=== PATIENT | male | born 1950 | race Caucasian/White ===

== ENCOUNTER 2018-01-16 12:04 | Inpatient (IN) | payer MEDICARE ==
[~2018-01-16] VITALS: Ht 182.9 cm; Wt 104.6 kg
[2018-01-16] MEDS ORDERED: SODIUM CHLORIDE FLUSH 10ML SYR IVF ONE (13:00)
[2018-01-16] MEDS ORDERED: MORPHINE SULFATE 4 MG/ML, 1ML IVPush PRN (13:00)
[2018-01-16] MEDS ORDERED: ONDANSETRON 2MG/ML, 2ML IVPush ONE (13:00)
[2018-01-16 13:03] LABS: BASOPHILS # (AUTO) 0.06 x10^3/uL (0-0.1); BASOPHILS % (AUTO) 1 % (0-1); EOSINOPHILS # (AUTO) 0.28 x10^3/uL (0-0.4); EOSINOPHILS % (AUTO) 5 % (1-7); LYMPHOCYTES # (AUTO) 1.68 x10^3/uL (1-3.4); LYMPHOCYTES % (AUTO) 27 % (22-44); MD NO; MEAN CORPUSCULAR HEMOGLOBIN 31.8 pg (27.5-34.5); MEAN CORPUSCULAR HGB CONC 34.3 g/dL (33.2-36.2); MEAN CORPUSCULAR VOLUME 92.7 fL (81-97); MEAN PLATELET VOLUME 8.7 fL (7.4-10.4); MONOCYTES # (AUTO) 0.62 x10^3/uL (0.2-0.8); MONOCYTES % (AUTO) 10 % (2-9); NEUTROPHILS # (AUTO) 3.56 x10^3/uL (1.8-6.8); NEUTROPHILS % (AUTO) 58 % (42-75); PLATELET COUNT 202 x10^3/uL (130-400); RED BLOOD COUNT 4.58 x10^6/uL (4.38-5.82); RED CELL DISTRIBUTION WIDTH 13.4 % (9.4-14.8)
[2018-01-16] MEDS ORDERED: ATOR-2 PO (13:05)
[2018-01-16] MEDS ORDERED: ASPI-621 PO (13:05)
[2018-01-16 13:12] LABS: ALBUMIN 3.9 g/dL (3.4-5.0); ANION GAP 9 mmol/L (5-15); CALCIUM 8.8 mg/dL (8.5-10.1); CHLORIDE 107 mmol/L (98-107)
[2018-01-16 13:13] LABS: CREATININE 0.63 mg/dL (0.7-1.3)
[2018-01-16 13:17] LABS: TROPONIN I < 0.015 ng/mL (0.000-0.045)
[2018-01-16] MEDS ORDERED: MORPHINE SULFATE 4 MG/ML, 1ML ONE (13:20)
[2018-01-16] MEDS ORDERED: ONDANSETRON 2MG/ML, 2ML ONE (13:20)
[2018-01-16 15:29] VITALS: BP_SYST 132; BP_SYST 137; BP_SYST 148; BP_DIAS 83
[2018-01-16] MEDS ORDERED: DOCUSATE 100 MG CAPSULE PO PRN (15:30)
[2018-01-16] MEDS ORDERED: BISACODYL 10 MG SUPP PR PRN (15:30)
[2018-01-16] MEDS ORDERED: hydrALAzine 20 MG/ML, 1ML IVPush PRN (15:30)
[2018-01-16] MEDS ORDERED: LABETALOL 5MG/ML, 20ML IVPush PRN (15:30)
[2018-01-16] MEDS ORDERED: POLYETHYLENE GLYCOL 17 GM PACKET PO PRN (15:30)
[2018-01-16 15:31] LABS: INTERNATIONAL NORMALIZED RATIO 1.01 (0.93-1.1); PROTHROMBIN TIME 10.5 Seconds (9.6-11.5)
[2018-01-16 15:56] LABS: FREE T4 (FREE THYROXINE) 1.19 ng/dL (0.76-1.46); THYROID STIMULATING HORMONE 2.13 mIU/L (0.358-3.740)
[2018-01-16 16:16] LABS: AMPHETAMINE SCREEN, URINE Negative (Negative); BARBITURATE SCREEN, URINE Negative (Negative); BENZODIAZEPINE SCREEN, URINE Negative (Negative); CANNABINOID SCREEN, URINE Negative (Negative); COCAINE SCREEN, URINE Negative (Negative); METHADONE SCREEN, URINE Negative (Negative); OPIATE SCREEN, URINE Positive (Negative)
[2018-01-16] MEDS ORDERED: GABAPENTIN 100 MG CAPSULE PO PRN (16:30)
[2018-01-16] MEDS: HEPARIN 5,000 UNITS/ML, 1ML SQ SCH (16:55)
[2018-01-16] MEDS: ATORVASTATIN 80 MG TABLET PO SCH (17:32)
[2018-01-16] MEDS: ACETAMINOPHEN 325 MG TABLET PO PRN (18:31)
[2018-01-16 19:34] VITALS: BP 121/78
[2018-01-17 00:35] VITALS: BP 107/70
[2018-01-17] MEDS: HEPARIN 5,000 UNITS/ML, 1ML SQ SCH ×3 (01:06→16:29)
[2018-01-17] MEDS: ACETAMINOPHEN 325 MG TABLET PO PRN (01:12)
[2018-01-17 04:54] LABS: ALBUMIN 3.4 g/dL (3.4-5.0); ANION GAP 8 mmol/L (5-15); CALCIUM 9.5 mg/dL (8.5-10.1); CHLORIDE 109 mmol/L (98-107)
[2018-01-17 05:13] LABS: ALANINE AMINOTRANSFERASE 54 U/L (12-78); ALKALINE PHOSPHATASE 58 U/L (45-117); BILIRUBIN,TOTAL 0.3 mg/dL (0.2-1.0); CREATININE 0.73 mg/dL (0.7-1.3); TOTAL PROTEIN 6.5 g/dL (6.4-8.2)
[2018-01-17 06:29] LABS: CHOL/HDL RATIO 3.8; LDL/HDL RATIO 0.7 (0.5-3.0)
[2018-01-17 07:14] VITALS: BP 130/79
[2018-01-17] MEDS: ASPIRIN 81 MG TABLET EC PO SCH (07:53)
[2018-01-17 12:52] VITALS: BP 133/87
[2018-01-17] MEDS ORDERED: BISACODYL 5 MG EC TABLET PO PRN (14:00)
[2018-01-17] MEDS: SODIUM CHLORIDE 0.9% 1,000 ML IV SCH (16:28)
[2018-01-17] MEDS ORDERED: OXYcodone IR 5MG TABLET PO ONE (17:00)
[2018-01-17 19:53] VITALS: BP 121/73
[2018-01-17] MEDS: ATORVASTATIN 80 MG TABLET PO SCH (21:07)
[2018-01-18 01:00] VITALS: BP 124/79
[2018-01-18] MEDS: SODIUM CHLORIDE 0.9% 1,000 ML IV SCH ×3 (01:02→16:24)
[2018-01-18] MEDS: HEPARIN 5,000 UNITS/ML, 1ML SQ SCH ×3 (01:03→16:25)
[2018-01-18 06:02] LABS: ALBUMIN 3.5 g/dL (3.4-5.0); ANION GAP 7 mmol/L (5-15); CALCIUM 8.7 mg/dL (8.5-10.1); CHLORIDE 110 mmol/L (98-107)
[2018-01-18 06:03] LABS: CREATININE 0.65 mg/dL (0.7-1.3)
[2018-01-18 08:00] VITALS: BP 130/83
[2018-01-18] MEDS: ASPIRIN 81 MG TABLET EC PO SCH (08:32)
[2018-01-18 10:30] VITALS: BP 118/80
[2018-01-18 10:31] VITALS: BP 134/83
[2018-01-18 10:32] VITALS: BP 137/84
[2018-01-18] MEDS ORDERED: MECLIZINE 12.5 MG TABLET PO PRN (11:00)
[2018-01-18 14:00] VITALS: BP 135/87
== END 2018-01-18 16:35 | disposition home or self-care (01) | DRG 74 ==
LOC: ED 13:55 → EDIP 14:03 → 5SO 15:16 → DCLOUNGE 01-18 16:15
PROVIDERS: ADMIT Internal Medicine; ATTEND Internal Medicine
DX: G90.8 Other disorders of autonomic nervous system (principal); R42 Dizziness and giddiness; I25.10 Atherosclerotic heart disease of native coronary artery without angina pectoris; G56.00 Carpal tunnel syndrome, unspecified upper limb; I48.91 Unspecified atrial fibrillation; E78.5 Hyperlipidemia, unspecified; Z96.659 Presence of unspecified artificial knee joint; M48.02 Spinal stenosis, cervical region; E83.39 Other disorders of phosphorus metabolism; G47.33 Obstructive sleep apnea (adult) (pediatric); I10 Essential (primary) hypertension; Z80.41 Family history of malignant neoplasm of ovary; Z83.2 Family history of diseases of the blood and blood-forming organs and certain disorders involving the immune mechanism; Z87.891 Personal history of nicotine dependence; Z91.14 Patient's other noncompliance with medication regimen; Z95.1 Presence of aortocoronary bypass graft
CPT/HCPCS: 36415; 70450; 70553; 71045; 72141; 80048; 80053; 80061; 80307; 82040; 82306; 82550; 83735; 83970; 84100; 84439; 84443; 84484; 84550; 85025; 85610; 90656; 93005; 93306; 93880; 96372; 96374; 96375; 99285; G0378; J1644; J2405; J7030

== ENCOUNTER 2018-12-27 12:30 | Emergency (ER) | payer MEDICARE ==
[~2018-12-27] VITALS: Ht 182.9 cm; Wt 93.0 kg
[~2018-12-27 12:30] MED LIST: ASPI81TA45 PO; ATOR-2 PO
[2018-12-27 13:20] VITALS: BP 142/87
== END 2018-12-27 15:35 ==
LOC: ED 15:16
DX: M51.34 Other intervertebral disc degeneration, thoracic region (principal); M51.36 Other intervertebral disc degeneration, lumbar region; I10 Essential (primary) hypertension; I48.91 Unspecified atrial fibrillation; F17.200 Nicotine dependence, unspecified, uncomplicated; Z95.1 Presence of aortocoronary bypass graft; Z96.651 Presence of right artificial knee joint
CPT/HCPCS: 72072; 72110; 99283

== ENCOUNTER 2019-03-20 08:21 | Outpatient (CLI) | payer MEDICARE ==
[2019-03-20 08:47] LABS: ALBUMIN 3.7 g/dL (3.4-5.0); CALCIUM 8.4 mg/dL (8.5-10.1); CHLORIDE 108 mmol/L (98-107)
[2019-03-20 08:52] LABS: ALANINE AMINOTRANSFERASE 59 U/L (12-78); ALKALINE PHOSPHATASE 73 U/L (45-117); ANION GAP 4 mmol/L (5-15); BILIRUBIN,TOTAL 0.4 mg/dL (0.2-1.0); CHOL/HDL RATIO 3.4; CHOLESTEROL, TOTAL 126 mg/dL (140-239); CREATININE 0.84 mg/dL (0.7-1.3); HDL CHOL % 29 % (26-37); HDL CHOLESTEROL (DIRECT) 37 mg/dL (40-60); LDL CHOLESTEROL,CALCULATED 63 mg/dL (54-169); LDL/HDL RATIO 1.7 (0.5-3.0); TOTAL PROTEIN 7.5 g/dL (6.4-8.2); TRIGLYCERIDES 129 mg/dL (50-200); VLDL CHOLESTEROL 26 mg/dL (0-25)
== END 2019-03-20 23:59 | disposition home or self-care (01) ==
LOC: LAB 08:21
PROVIDERS: ATTEND Family Medicine
DX: I10 Essential (primary) hypertension (principal)
CPT/HCPCS: 36415; 80053; 80061; 82043

== ENCOUNTER 2019-05-26 05:53 | Emergency (ER) | payer MEDICARE ==
[~2019-05-26] VITALS: Ht 182.9 cm; Wt 97.8 kg
[2019-05-26] MEDS ORDERED: METO25TA35 PO (06:13)
[2019-05-26] MEDS ORDERED: OXYC10TA6 PO (06:13)
--- NOTE | 2019-05-26 06:13 | NUR ---
PT C/O SHARP CHEST PAIN 4/10, ALSO REPORTS LEFT SHOULDER PAIN HAD RECENT REPAIR.
[2019-05-26 06:52] VITALS: BP 119/68
[2019-05-26 07:22] LABS: BASOPHILS # (AUTO) 0.06 x10^3/uL (0-0.1); BASOPHILS % (AUTO) 1 % (0-1); EOSINOPHILS # (AUTO) 0.27 x10^3/uL (0-0.4); EOSINOPHILS % (AUTO) 4 % (1-7); LYMPHOCYTES # (AUTO) 1.93 x10^3/uL (1-3.4); LYMPHOCYTES % (AUTO) 32 % (22-44); MD NO; MEAN CORPUSCULAR HGB CONC 33.9 g/dL (33.2-36.2); MEAN CORPUSCULAR VOLUME 91.4 fL (81-97); MEAN PLATELET VOLUME 8.5 fL (7.4-10.4); MONOCYTES % (AUTO) 10 % (2-9); NEUTROPHILS # (AUTO) 3.22 x10^3/uL (1.8-6.8); NEUTROPHILS % (AUTO) 53 % (42-75); PLATELET COUNT 181 x10^3/uL (130-400); RED CELL DISTRIBUTION WIDTH 13.4 % (9.4-14.8)
[2019-05-26 07:33] LABS: ALANINE AMINOTRANSFERASE 38 U/L (12-78); ALBUMIN 3.5 g/dL (3.4-5.0); ANION GAP 6 mmol/L (5-15); CALCIUM 8.9 mg/dL (8.5-10.1); CHLORIDE 108 mmol/L (98-107); CREATININE 0.71 mg/dL (0.7-1.3)
[2019-05-26 07:37] LABS: ALKALINE PHOSPHATASE 61 U/L (45-117); BILIRUBIN,TOTAL 0.5 mg/dL (0.2-1.0); TROPONIN I < 0.015 ng/mL (0.000-0.045)
--- NOTE | 2019-05-26 07:46 | NUR ---
all results back at this time. chart up for recheck.
== END 2019-05-26 08:06 | disposition home or self-care (01) ==
LOC: ED 05:59
DX: R07.89 Other chest pain (principal); R05 Cough; Z95.1 Presence of aortocoronary bypass graft
CPT/HCPCS: 36415; 71045; 80053; 83690; 84484; 85025; 93005; 99285

== ENCOUNTER 2020-05-28 15:22 | Emergency (ER) | payer MEDICARE ==
[~2020-05-28] VITALS: Ht 182.9 cm; Wt 96.6 kg
[~2020-05-28 15:22] MED LIST changes: +METO25TA35 PO; +OXYC10TA6 PO
--- NOTE | 2020-05-28 16:08 | NUR ---
PT TO ROOM W/ C/O WEAKNESS/DIZZINESS/CONGESTION STARTED . PT STATES HE WAS TESTED AND GIVEN RESULTS ON MONDAY CONFIRMING PT WAS COVID +. PT STATES HE THEN HAD ABD PAIN AND WENT TO [facility] AND WAS GIVEN THE RAPID COVID AND WAS FOUND TO BE POSITIVE. PT THEN HAD SURGERY FOR UMBILICAL HERNIA 05/25/[address] FUNES AND WAS SENT HOME. PT STATES HE HAS NOT FELT ANY BETTER AND CAME TO ED. PT NOTED TO HAVE HEAT, REDNESS, SWELLING TO SURGICAL SITE AND AROUND IT. ORIGINAL SURGICAL BANDAGE STILL IN PLACE. PT RESTING ON GURNEY. +COUGHING EXCESSIVELY IN ROOM. O2 SATS REMAIN IN THE HIGH 90'S RA. PT SPEAKING IN FULL SENTENCES.
--- NOTE | 2020-05-28 17:29 | NUR ---
PT RESTING ON GURNEY. NADN. LINO.
[2020-05-28] MEDS ORDERED: CEFTRIAXONE PMX 1GM/50ML 50 ML ONE (17:45)
[2020-05-28 17:50] LABS: BASOPHILS % (AUTO) 1 % (0-1); EOSINOPHILS % (AUTO) 0 % (1-7); LYMPHOCYTES % (AUTO) 25 % (22-44); MEAN CORPUSCULAR HEMOGLOBIN 31.9 pg (27.5-34.5); MEAN CORPUSCULAR HGB CONC 33.8 g/dL (33.2-36.2); MEAN PLATELET VOLUME 8.8 fL (7.4-10.4); MONOCYTES % (AUTO) 13 % (2-9); NEUTROPHILS % (AUTO) 61 % (42-75); PLATELET COUNT 119 x10^3/uL (130-400); RED BLOOD COUNT 4.43 x10^6/uL (4.38-5.82); RED CELL DISTRIBUTION WIDTH 13.3 % (9.4-14.8)
[2020-05-28 17:51] LABS: MD NO
--- NOTE | 2020-05-28 17:53 | NUR ---
ABX STARTED AFTER BC X 2 DRAWN.
[2020-05-28 17:59] LABS: ALBUMIN 3.5 g/dL (3.4-5.0); ANION GAP 8 mmol/L (5-15); CALCIUM 8.7 mg/dL (8.5-10.1); CHLORIDE 105 mmol/L (98-107)
[2020-05-28 18:00] LABS: CREATININE 0.64 mg/dL (0.7-1.3)
[2020-05-28] MEDS ORDERED: SODIUM CHLORIDE 0.9% 1,000ML IVBOLUS ONE (18:00)
[2020-05-28] MEDS ORDERED: CEFTRIAXONE PMX 1GM/50ML 50 ML IVPB ONE (18:00)
[2020-05-28] MEDS ORDERED: SODIUM CHLORIDE FLUSH 10ML SYR IVF ONE (18:30)
--- NOTE | 2020-05-28 18:43 | NUR ---
PT RESTING ON GURNEY. NADN. LINO.
--- NOTE | 2020-05-28 19:15 | NUR ---
PT DISCUSSED BAMLANIVIMAB MEDICATION WITH PT AND PT AGREES TO MEDICATION. PT PROVIDED W/ MEDICATION FACT SHEET AND EDUCATED ON NEED AND IMPORTANCE OF READING FACT SHEET AND TO LET THIS RN KNOW PT'S DECISION. CHON PHARMACIST TO BE NOTIFIED ONCE PT READS FACT SHEET AND MAKES FINAL DECISION.
--- NOTE | 2020-05-28 19:25 | NUR ---
PT AGREES TO TAKE MEDICATION. CHON, PHARMACIST NOTIFIED. STATES MEDICATION WILL BE READY AROUND 1999.
[2020-05-28] MEDS ORDERED: FILTER 0.22 MICRON IV ONE (19:45)
[2020-05-28] MEDS ORDERED: BAMLANIVIMAB 700 MG, ETESEVIMAB 1,400 MG in SODIUM CHLORIDE 0.9% 250 ML IV ONE (19:45)
--- NOTE | 2020-05-28 20:43 | NUR ---
report recieved from [facility]
--- NOTE | 2020-05-28 20:50 | NUR ---
REPORT GIVEN TO PRASANNA IZAGUIRRE.
--- NOTE | 2020-05-28 22:10 | NUR ---
PATIENT CLEARED FOR DISCHARGE. COMPLETED THERAPY TREATMENT FOR COVID. DENIES ANY COMPLICATIONS AT THIS TIME DUE TO TREATMENT. PATIENT VERBALIZED UNDERSTANDING OF ANTIBIOTIC THERAPY AT HOME AND SELF CARE REVOLVING CELLULITIS. PATIENT TAKEN TO LOBBY VIA WHEELCHAIR PER PATIENT'S REQUEST. PATIENT HAS SAFE RIDE HOME WITH FAMILY. VSS. ALL BELONGINGS TAKEN WITH PATIENT.
[2020-05-28 22:12] VITALS: BP 134/77
== END 2020-05-28 22:14 | disposition home or self-care (01) ==
LOC: ED 22:00
DX: U07.1 COVID-19 (principal); J06.9 Acute upper respiratory infection, unspecified; L03.311 Cellulitis of abdominal wall; R07.89 Other chest pain; R05 Cough; R42 Dizziness and giddiness; R06.02 Shortness of breath; I10 Essential (primary) hypertension; I48.91 Unspecified atrial fibrillation; I45.10 Unspecified right bundle-branch block; F17.200 Nicotine dependence, unspecified, uncomplicated
CPT/HCPCS: 36415; 71045; 80048; 82040; 85025; 87040; 93005; 96365; 99285; J0696; J7030; J7050; M0239; Q0239

== ENCOUNTER 2020-05-30 11:54 | Emergency (ER) | payer MEDICARE ==
[~2020-05-30] VITALS: Ht 182.9 cm; Wt 95.0 kg
[2020-05-30 12:47] LABS: BASOPHILS % (AUTO) 1 % (0-1); EOSINOPHILS % (AUTO) 2 % (1-7); LYMPHOCYTES % (AUTO) 29 % (22-44); MEAN CORPUSCULAR HEMOGLOBIN 32.2 pg (27.5-34.5); MEAN CORPUSCULAR HGB CONC 33.9 g/dL (33.2-36.2); MEAN PLATELET VOLUME 9.1 fL (7.4-10.4); MONOCYTES % (AUTO) 18 % (2-9); NEUTROPHILS % (AUTO) 51 % (42-75); PLATELET COUNT 138 x10^3/uL (130-400); RED BLOOD COUNT 4.47 x10^6/uL (4.38-5.82); RED CELL DISTRIBUTION WIDTH 13.4 % (9.4-14.8)
[2020-05-30 12:50] LABS: MD NO
[2020-05-30 12:56] LABS: ALBUMIN 3.6 g/dL (3.4-5.0); ANION GAP 8 mmol/L (5-15); CALCIUM 9.3 mg/dL (8.5-10.1); CHLORIDE 106 mmol/L (98-107); CREATININE 0.67 mg/dL (0.7-1.3)
--- NOTE | 2020-05-30 14:19 | NUR ---
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
--- NOTE | 2020-05-30 14:34 | NUR ---
PT WAS SEEN IN ER ON MONDAY. TESTED POSITIVE FOR COVID. PT REPORTS FEELING INCREASGINLY WEAK AND FATIGUED OVER THE PAST FEW DAYS. " I FEEL LIKE I CANT COUGH UP ANYTHING IN MY CHEST AND THERE IS A CONSTANT SCRATCHING FEELING". LASB DRAWN. X RAY COMPLETE. MD BEDSIDE FOR ASSESSMENT
[2020-05-30] MEDS ORDERED: DEXAMETHASONE 4 MG TABLET ONE (14:38)
[2020-05-30] MEDS ORDERED: ALBUTEROL/IPRATROPIUM 2.5MG/0.5MG, 3 ML ONE (14:38)
--- NOTE | 2020-05-30 14:51 | NUR ---
PT GIVEN BREATHING TX. PT TOLERATING WELL.
[2020-05-30] MEDS ORDERED: DEXAMETHASONE 4 MG TABLET PO ONE (15:00)
[2020-05-30] MEDS ORDERED: ALBUTEROL/IPRATROPIUM 2.5MG/0.5MG, 3 ML NPPB ONE (15:00)
[2020-05-30 15:38] VITALS: BP 151/61
--- NOTE | 2020-05-30 15:40 | NUR ---
Pt sitting up in bed, reports ease of breathing after neb tx. No other requests at this time.
== END 2020-05-30 16:37 | disposition home or self-care (01) ==
LOC: ED 14:59
DX: U07.1 COVID-19 (principal); J06.9 Acute upper respiratory infection, unspecified; J40 Bronchitis, not specified as acute or chronic; I10 Essential (primary) hypertension; G89.29 Other chronic pain; I48.91 Unspecified atrial fibrillation; F17.200 Nicotine dependence, unspecified, uncomplicated; Z96.651 Presence of right artificial knee joint; Z95.1 Presence of aortocoronary bypass graft
CPT/HCPCS: 36415; 74022; 80048; 82040; 85025; 94640; 99284

== ENCOUNTER 2020-09-18 23:27 | Emergency (ER) | payer MEDICARE ==
[~2020-09-18] VITALS: Ht 182.9 cm; Wt 96.7 kg
[2020-09-18 23:29] VITALS: BP 183/88
--- NOTE | 2020-09-19 00:38 | NUR ---
order runner: Pt ambulatory to room from lobby at this time.
--- NOTE | 2020-09-19 01:13 | NUR ---
CC OF LEFT LEG NUMBNESS, HX OF DDD AND BACK SURGERIES. PT STATES PAIN STARTS "IN MIDDLE OF MY BUTT AND GOES DOWN TO MY FOOT". CAN WALK, STATES IT IS PAINFUL.
== END 2020-09-19 02:14 | disposition home or self-care (01) ==
LOC: ED 09-19 01:44
DX: S76.012A Strain of muscle, fascia and tendon of left hip, initial encounter (principal); M54.32 Sciatica, left side; I10 Essential (primary) hypertension; I48.91 Unspecified atrial fibrillation; F17.200 Nicotine dependence, unspecified, uncomplicated; X58.XXXA Exposure to other specified factors, initial encounter; Y93.89 Activity, other specified; Y92.89 Other specified places as the place of occurrence of the external cause; Y99.8 Other external cause status
CPT/HCPCS: 99283